=== PATIENT | female | born 1960 ===

== ENCOUNTER 2017-01-10 14:15 | Emergency (ER) | payer MEDICARE ==
[2017-01-10 14:21] VITALS: O2SAT 100
[2017-01-10 16:08] LABS: BASO # 0.1 K/uL (0.0-0.2); BASO % 0.5 % (0.0-2.0); EOS # 0.2 K/uL (0.0-0.7); EOS % 1.7 % (0.0-4.0); HEMATOCRIT 37.7 % (34.0-47.0); LYMPH # 1.8 K/uL (1.0-4.3); LYMPH % 16.7 % (20.0-40.0); MEAN CELL VOLUME 86.4 fL (81.0-99.0); MEAN CORPUSCULAR HEMOGLOBIN 27.6 pg (27.0-31.0); MEAN PLATELET VOLUME 9.2 fL (7.2-11.7); MONO # 0.8 K/uL (0.0-0.8); MONO % 7.7 % (0.0-10.0); RED CELL DISTRIBUTION WIDTH 14.1 % (11.5-14.5); WHITE BLOOD COUNT 10.9 K/uL (4.8-10.8)
[2017-01-10 16:16] LABS: CHLORIDE 99 mmol/L (98-107)
[2017-01-10 16:17] LABS: POTASSIUM 4.1 mmol/L (3.6-5.2); SODIUM 139 mmol/L (132-148)
[2017-01-10 16:19] LABS: ALB/GLOB RATIO 1.1 (1.0-2.1); AST/SGOT 27 U/L (14-36); BILIRUBIN,TOTAL 1.4 mg/dL (0.2-1.3); BLOOD UREA NITROGEN 22 mg/dL (7-17); CARBON DIOXIDE 27 mmol/L (22-30); GFR AFRICAN-AMERICAN > 60; TOTAL PROTEIN 7.9 g/dL (6.3-8.3)
[2017-01-10 16:20] LABS: ALKALINE PHOSPHATASE 65 U/L (38-126); ALT/SGPT 26 U/L (9-52); CALCIUM 8.5 mg/dl (8.6-10.4); GLUCOSE,RANDOM 97 mg/dL (65-105)
--- NOTE | 2017-01-10 16:56 | C.PDOC ---
History Of Present Illness 56 y/o female is referred by PMD for evaluation of right lower extremity cellulitis. Patient has been on Keflex for 3 days with minimal change. Reports cellulitis for approximately one week. She denies any fevers or other complaints. Chief Complaint (Nursing): Abnormal Skin Integrity History Per: Patient History/Exam Limitations: no limitations Onset/Duration Of Symptoms: Days (7), Persistent Current Symptoms Are (Timing): Still Present Recent travel outside of the [place]: No Past Medical History Reviewed: Historical Data, Nursing Documentation, Vital Signs Vital Signs: Last Vital Signs Temp 97.6 F 01/10/17 14:20 Pulse 62 01/10/17 14:20 Resp 20 01/10/17 14:20 BP 113/73 01/10/17 14:20 Pulse Ox 100 01/10/17 18:20 - Medical History PMH: HTN, Hypercholesterolemia Surgical History: Pacemaker Family History: States: Unknown Family Hx - Social History Hx Tobacco Use: No Hx Alcohol Use: No Hx Substance Use: No - Immunization History Hx Influenza Vaccination: No Review Of Systems Except As Marked, All Systems Reviewed And Found Negative. Constitutional: Negative for: Fever Skin: Positive for: Other (right lower extremity cellulitis) Physical Exam - Physical Exam Appears: Non-toxic, No Acute Distress Skin: Warm, Dry Head: Atraumatic, Normacephalic Neck: Normal ROM Chest: Symmetrical Cardiovascular: Rhythm Regular Respiratory: Normal Breath Sounds, No Rales, No Rhonchi, No Wheezing Extremity: Normal ROM, Capillary Refill (< 2 seconds), Other (right lower extremity, 3 x 5 cm area of cellulitis with (+) erythema, no breakage of the skin) Pulses: Left Dorsalis Pedis: Normal, Right Dorsalis Pedis: Normal Neurological/Psych: Oriented x3, Normal Speech, Normal Cognition, Normal Sensation ED Course And Treatment - Laboratory Results Result Diagrams: 01/10/17 16:00 01/10/17 16:00 O2 Sat by Pulse Oximetry: 100 (ra) Pulse Ox Interpretation: Normal Progress Note: Plan: Blood Work, Vancomicyn IVPB. Medical Decision Making Medical Decision Making: Contacted referring office, will do IV antibiotics and probable discharge home with change in antibiotics and prompt follow up. Disposition - Disposition Referrals: Sarah Gutierrez, [Non-Staff] - Disposition: HOME/ ROUTINE Disposition Time: 06:45 Condition: GOOD Additional Instructions: Thank you for letting us take care of you today. Your provider was Dr. Paniagua. You were treated for cellulitis. The emergency medical care you received today was directed at your acute symptoms. If you were prescribed any medication, please fill it and take as directed. It may take several days for your symptoms to resolve. Return to the Emergency Department if your symptoms worsen, do not improve, or if you have any other problems. Please contact your doctor or call one of the physicians/clinics you have been referred to that are listed on the Patient Visit Information form that is included in your discharge packet. Bring any paperwork you were given at discharge with you along with any medications you are taking to your follow up visit. Our treatment cannot replace ongoing medical care by a primary care provider (PCP) outside of the emergency department. Thank you for allowing the [facility] team to be part of your care today. Follow up with your doctor in 2 days to be re-evaluated. Continue taking the antibiotic that you were given by your doctor and start the antibiotic given to you today. Prescriptions: Sulfamethoxazole/Trimethoprim [Bactrim DS 800 mg-160 mg] 1 tab PO BID #14 tab Instructions: Cellulitis (ED) - Clinical Impression Clinical Impression: Cellulitis - Scribe Statement The provider has reviewed the documentation as recorded by the Scribe (Darcie Henry) Provider Attestation: All medical record entries made by the Scribe were at my direction and personally dictated by me. I have reviewed the chart and agree that the record accurately reflects my personal performance of the history, physical exam, medical decision making, and the department course for this patient. I have also personally directed, reviewed, and agree with the discharge instructions and disposition.
[2017-01-10 19:34] VITALS: BP 122/80; PULSE 88; RESP 18; TEMP 98.4
== END 2017-01-10 19:36 | disposition home or self-care (01) ==
LOC: C.ER 14:15
DX: L03.115 Cellulitis of right lower limb (principal)
CPT/HCPCS: 80053; 85025; 87040; 99284; J7050

== ENCOUNTER 2019-01-09 18:44 | Outpatient (CLI) | payer MEDICARE | END 2019-01-09 18:45 | disposition home or self-care (01) | LOC: C.SLEEP 18:44 | DX: G47.33 Obstructive sleep apnea (adult) (pediatric) (principal) ==